=== PATIENT | female | born 1955 | race Caucasian/White ===

== ENCOUNTER 2019-09-13 08:13 | Emergency (ER) | payer BC ==
[2019-09-13 08:31] VITALS: BP 138/74
--- NOTE | 2019-09-13 08:52 | UC ---
Throat Pain/Nasal [place] HPI - HPI Summary HPI Summary: CHIEF COMPLAINT and HPI: This is a healthy 64-year-old female who comes in complaining of sore throat and significant postnasal drip for 2 weeks. She also has a cough. 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 . Patient also complains of a rash underneath both breasts. Description of Pain: Location:throat Radiation:nonradiating Type:, worse with swallowing Intensity:mild Variation:, worse in the morning VITAL SIGNS & SaO2 REVIEWED. Within normal limits unless noted here. 138/74 NURSES NOTE REVIEWED. - History of Current Complaint Chief Complaint: UCRespiratory Stated Complaint: SORE THROAT EAR PAIN Time Seen by Provider: 09/13/19 08:47 Pain Intensity: 2 - Allergies/Home Medications Allergies/Adverse Reactions: Allergies Allergy/AdvReac Type Severity Reaction Status Date / Time No Known Allergies Allergy Verified 09/13/19 08:29 Home Medications: Home Medications Dm/PE/Acetaminophen/Doxylamine [Vicks Dayquil/Nyquil Cold] 1 mis PO ONCE PRN [History Confirmed 09/13/19] PMH/Surg Hx/FS Hx/Imm Hx - Additional Past Medical History Additional PMH: PAST MEDICAL HISTORY- , sleep apnea, GERD, migraines.status post tonsillectomy. CHRONIC and RECURRENT HEALTH PROBLEM LIST REVIEWED. Information relevant to present complaint: none. VISIT HISTORY REVIEWED. MEDICATIONS & ALLERGIES REVIEWED. HYPERTENSION STATUS:no antihypertensive medication. FAMILY HISTORY: cancer. 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 Previously Healthy: Yes - Surgical History Surgical History: Yes Surgery Procedure, Year, and Place: TONSILLECTOMY A CHILD;. JIMMY-, [facility] [place]. TORN RIGHT MEDICAL MENISCUS IN KNEE-2004, [facility] [place] ;. BILAT CATARACTS-2009, [facility] [place] ;. INFECTED SPLINTER IN HAND-2005, [facility] [place] ;. 11/16/2013 RIGHT CARPAL TUNNEL RELEASE [facility] [place],;. LEFT CARPALTUNNEL, ;. RT FOOT PLANTAR FASCIATIS, ; - Social History Alcohol Use: Occasionally Alcohol Amount: 2-3 DRINKS/WEEK Substance Use Type: None Smoking Status (MU): Never Smoked Tobacco Have You Smoked in the Last Year: No Review of Systems All Other Systems Reviewed And Are Negative: Yes Constitutional: Positive: Negative Skin: Positive: Negative ENT: Positive: Sore Throat, Other - postnasal drip Respiratory: Positive: Negative Cardiovascular: Positive: Negative Gastrointestinal: Positive: Negative Physical Exam - Summary Physical Exam Summary: Appearance: The patient is well-appearing, is in no pain or distress, and is well-nourished. Eyes: Conjunctiva are clear. Pupils are equal and reactive to light and accommodation. Extra ocular muscle movement is intact. ENT: The hearing is grossly normal, the pharynx is , slightly erythematous, and the TMs are normal. There is no muffled or hoarse voice. No stridor. Neck: The neck is supple and there is no lymphadenopathy. Respiratory: The chest is non-tender to palpation and without crepitus. The lungs are clear, there are normal breath sounds, and there is no respiratory distress. No wheezes, rales or rhonchi. Cardiovascular: Heart sounds reveal a regular rate and rhythm. There are no clicks, rubs or murmurs. There are no carotid bruits or thrills. Circulation is grossly intact. Abdomen: The abdomen is soft and nontender. There is no organomegaly. Bowel sounds are present and within normal limits. No point tenderness at McBurneys point. No CVA tenderness. Musculoskeletal: Strength is intact. The patient moves all extremities. Neurological: The patient is alert. Motor and sensory are examination grossly intact. Speech is normal. Psychological: The patient displays age appropriate behavior, and is conversant. GCS=15. Skin: erythematous rash under both breasts, consistent with a contact dermatitis. Triage Information Reviewed: Yes Vital Signs: Initial Vital Signs Temp 97.3 F 09/13/19 08:20 Pulse 96 09/13/19 08:20 Resp 18 09/13/19 08:20 BP 138/74 09/13/19 08:20 Pulse Ox 100 09/13/19 08:20 Throat Pain/Nasal Course/Dx - Course Course Of Treatment: Patient presents with a sore throat consistent with pharyngitis. Examination of the throat shows no peritonsillar abscess. There is no posterior, cervical adenopathy. There is no history of shortness of breath or change in voice. The patient is well-hydrated. Rapid strep is negative. Treatment is throat hygiene and comfort measures including tea and honey, warm water garbles, and dexamethasone for 2 days, 8 mg a day. Follow up for continued symptoms or fever in 3 days. Patient knows to go to ED for any inability to swallow or increasing shortness of breath. Erythematous rash under both breasts, consistent with a contact dermatitis. Lotrisone was prescribed. - Differential Dx/Diagnosis Differential Diagnosis/HQI/PQRI: Laryngitis, Peritonsillar Abscess, Pharyngitis , URI, Other - rash Provider Diagnosis: Sore throat, Contact dermatitis Discharge ED - Sign-Out/Discharge Documenting (check all that apply): Patient Departure All imaging exams completed and their final reports reviewed: No Studies - Discharge Plan Condition: Stable Disposition: HOME Prescriptions: Clotrimazole/Betamethasone* [Lotrisone Cream*] 1 applic TOPICAL TID #30 tube MDD 3 TIMES A DAY FOR 7 DAYS Dexamethasone TAB* [Decadron TAB*] 4 mg PO DAILY #4 tab MDD 2 Patient Education Materials: Antihistamine/Decongestant (By mouth), Analgesic/ Antitussive/Decongestant/Expectorant Combination (By mouth), Contact Dermatitis (DC), Pharyngitis (ED) Referrals: Soheila Lu MD [Primary Care Provider] - Additional Instructions: WE DISCUSSED: PLEASE SEEK CARE AT THE EMERGENCY DEPARTMENT IF SYMPTOMS WORSEN OR IF NEW SYMPTOMS DEVELOP. FOLLOW UP WITH YOUR PRIMARY CARE PHYSICIAN IF CONDITION CONTINUES BEYOND 3 DAYS WITHOUT IMPROVEMENT. YOUR DIAGNOSIS IS: VIRAL PHARYNGITIS; CONGESTION; LARYNGITIS; CONTACT DERMATITIS, CHEST YOUR PRESCRIPTION RECOMMENDATION IS: DEXAMETHASONE; LOTRISONE OTHER INSTRUCTIONS: Hypertension Discharge Instructions: Your blood pressure reading today was 138/74; RE CHECK OVER THE NEXT MONTH TO SEE IF IT IS BELOW 120/80. Follow up, as needed with your doctor. FOR PAIN AND/OR SLEEP: For pain: Ibuprofen (Motrin and other brand names) 400-600mg PLUS acetaminophen (Tylenol and other brand names) 500mg - 1000mg every 8 hours. Also: use Neti pot, as well as lots of warm water gargles, tea and honey, steam, and warm showers. - Billing Disposition and Condition Condition: STABLE Disposition: Home
== END 2019-09-13 09:47 | disposition home or self-care (01) ==
LOC: UCEAST 08:13
DX: J02.9 Acute pharyngitis, unspecified (principal); L25.9 Unspecified contact dermatitis, unspecified cause; H92.09 Otalgia, unspecified ear; R09.82 Postnasal drip
CPT/HCPCS: 87651; 99212; G0463

== ENCOUNTER 2024-03-27 19:37 | Observation (INO) ==
[2024-03-27 20:40] LABS: ABS Eosinophils 0.1 10^3/uL (0.0-0.5); ABS Lymphocytes 1.5 10^3/uL (1.0-4.8); ABS Monocytes 0.8 10^3/uL (0.0-0.9); ABS Neutrophils 10.5 10^3/uL (1.5-7.6); ABS Nucleated RBC 0.01 10^3/ul; Eosinophil % 0.7 %; Hematocrit 38.8 % (35-45); Hemoglobin 13.1 g/dL (11.5-14.3); Lymphocyte % 11.8 %; Mean Corpuscular Hemoglobin 28.5 pg (27-33); Mean Corpuscular Hgb Conc 33.9 g/dL (31-36); Mean Corpuscular Volume 84.1 fL (80-97); Nucleated Red Blood Cells % 0.1 %/100WBC (0.0-0.8); Platelet Count 233 10^3/uL (150-450); Red Blood Count 4.61 10^6/uL (3.63-4.92); Red Cell Distribution Width 13.5 % (12-17)
[2024-03-27 21:00] LABS: Urine Appearance Clear; Urine Bilirubin Negative (Negative); Urine Blood Negative (Negative); Urine Color Light-Yellow; Urine Glucose Negative (Negative); Urine Ketones 2+ (Negative); Urine Nitrite Negative (Negative); Urine Protein Negative (Negative); Urine Specific Gravity 1.019 (1.002-1.030); Urine Urobilinogen Negative (Negative); Urine pH 5.5 (5.0-8.0)
[2024-03-27 21:03] LABS: Urine Bacteria Absent /HPF (Absent); Urine Red Blood Cell Trace(0-2/hpf) /HPF (0-Trace); Urine Squamous Epithelial Cell Present /HPF (Absent); Urine White Blood Cell 1+(6-10/hpf) /HPF (0-Trace)
[2024-03-27 21:20] LABS: Albumin 4.4 g/dL (3.2-5.2); Albumin/Globulin Ratio 1.6 (1-3); C Reactive Protein 31.91 mg/L (<8.01); Calcium 9.4 mg/dL (8.6-10.3); Creatinine, Serum 0.73 mg/dL (0.51-0.95); Globulin 2.8 g/dL (2-4); Potassium 4.4 mmol/L (3.5-5.0); Total Bilirubin 0.6 mg/dL (0.2-1.0); Total Protein 7.2 g/dL (6.4-8.9); eGFR CKD-EPI 90.1 (>60)
[2024-03-28] MEDS ORDERED: Morphine 4 MG/ML VIAL (1 ml) IV PRN (00:01)
[2024-03-28] MEDS: Iohexol 300 (CONTRAST) 10 ML SDV IV ONE (00:10)
[2024-03-28] MEDS: Piperacillin/Tazobac 3.375 BAG 3.375 GM/100 ML BAG IV ONE (00:53)
[2024-03-28] MEDS ORDERED: Zosyn per Pharmacy NOTE FOLLOW UP SCH (01:00)
[2024-03-28] MEDS ORDERED: Ondansetron 4 mg VIAL 2 MG/ML 2 ml VIAL IV PRN (01:36)
[2024-03-28] MEDS: Lactated Ringers 1000 ml BAG 1,000 ML IV ONE (02:35)
[2024-03-28] MEDS: NS 0.9% 1,000 ML IV SCH (04:09)
[2024-03-28] MEDS: ZOSYN 3.375 GM Q8H per EXTENDED INFUSION IV SCH (05:24)
[2024-03-28] MEDS: Acetaminophen IV 1 GM/100ML 1,000 MG/100 ML BAG IV PRN (10:03)
[2024-03-28] MEDS ORDERED: Lidocaine 2% PF 5 ML VIAL ONE ×2 (11:39→11:58)
[2024-03-28] MEDS ORDERED: Propofol 10 MG/ML 20 ML BTL ONE ×4 (11:39→12:10)
[2024-03-28] MEDS ORDERED: Rocuronium 50 mg VIAL 10 mg/ml 5 ml VIAL (50 mg) ONE ×2 (11:40→11:58)
[2024-03-28] MEDS ORDERED: Midazolam 2 mg/2 ml VIAL 1 mg/ml 2 ml VIAL (2 mg) ONE ×2 (11:40→11:59)
[2024-03-28] MEDS ORDERED: fentaNYL 250 mcg/5 ml 50 MCG/ML 5 ml VIAL (250 MCG) ONE (11:42)
[2024-03-28] MEDS ORDERED: Dexamethasone IV 4 MG/ML VIAL 1 ml VIAL ONE (11:58)
[2024-03-28] MEDS ORDERED: Ondansetron 4 mg VIAL 2 MG/ML 2 ml VIAL ONE (11:58)
[2024-03-28] MEDS ORDERED: fentaNYL 100 mcg/2 ml 50 MCG/ML VIAL ONE (11:59)
[2024-03-28] MEDS ORDERED: Scopolamine 1 mg/72hr PATCH ONE (12:02)
[2024-03-28] MEDS ORDERED: Lidocaine 1% w EPI 1:100,000 MDV 20 ML VIAL ONE (12:07)
[2024-03-28] MEDS ORDERED: Bupivacaine 0.5% SDV PF 30ML VIAL ONE (12:07)
[2024-03-28 15:36] VITALS: BP 136/85
== END 2024-03-28 15:15 | disposition home or self-care (01) ==
LOC: EDHOLD 19:37 → ED 19:37 → SSU 03-28 02:02
PROVIDERS: ADMIT Surgery; ATTEND Surgery